=== PATIENT | female | born 1970 | race Two or more races ===

== ENCOUNTER 2018-06-11 12:41 | Emergency (ER) | END 2018-06-11 14:44 | disposition home or self-care (01) ==

== ENCOUNTER 2019-01-05 21:30 | Emergency (ER) | payer OTHER ==
[~2019-01-05] VITALS: Ht 157.5 cm; Wt 82.9 kg
[~2019-01-05 21:30] MED LIST: CEPH-443 PO; IBUP-1542 PO; NAPR-985 PO; VAL2 PO
[2019-01-05 21:39] VITALS: Ht 157.5 cm; Wt 82.9 kg
[2019-01-06] MEDS ORDERED: ACETAMINOPHEN 325 MG TAB PO ONE (02:00)
[2019-01-06] MEDS ORDERED: CHOL100062 PO (03:17)
[2019-01-06] MEDS ORDERED: LORA-441 PO (04:21)
[2019-01-06 04:50] VITALS: BP 137/75; PULSE 70; RESP 20
--- NOTE | 2019-01-31 21:17 | ERD ---
ER Documentation Chief Complaint Chief Complaint c/o non radiating cpx2 mo. worse tonight. denies sob. HPI Is a 49) comes with tolerating chest pain for 2 months which is worsening. Pain is mild to moderate intensity no exacerbating living factors. Denies fevers chills nausea vomiting. Denies shortness of breath. Denies palpitations. Denies any other current issues. ROS All systems reviewed and are negative except as per history of present illness. Medications Home Meds Active Scripts Lorazepam* (Ativan*) 0.5 Mg Tablet, 0.5 MG PO Q8H PRN for ANXIETY, #10 TAB Prov:ROLANDA CROCKER 01/06/19 Naproxen* (Naprosyn*) 500 Mg Tablet, 500 MG PO BID PRN for PAIN AND/OR INFLAMMATION, #30 TAB Prov:ROLANDA MULLER PA-C 09/03/18 Ibuprofen* (Motrin*) 600 Mg Tab, 600 MG PO Q6, #30 TAB Prov:ERIC HUFFMAN 06/11/18 Reported Medications Cholecalciferol* (Vitamin D3*) 1,000 Unit Tablet, 1000 UNIT PO DAILY, TAB 01/06/19 Allergies Allergies: Coded Allergies: No Known Allergy (Unverified , 01/05/19) PMhx/Soc History of Surgery: No Anesthesia Reaction: No Hx Neurological Disorder: No Hx Respiratory Disorders: No Hx Cardiac Disorders: Yes (HTN) Hx Psychiatric Problems: No Hx Miscellaneous Medical Probl: No Hx Alcohol Use: Yes (social) Hx Substance Use: No Hx Tobacco Use: No Smoking Status: Never smoker Physical Exam Physical Exam Const: No acute distress Head: Atraumatic Eyes: Normal Conjunctiva ENT: Normal External Ears, Nose and Mouth. Neck: Full range of motion. No meningismus. Resp: Clear to auscultation bilaterally Cardio: Regular rate and rhythm, no murmurs Abd: Soft, non tender, non distended. Normal bowel sounds Skin: No petechiae or rashes Back: No midline or flank tenderness Ext: No cyanosis, or edema Neur: Awake and alert Psych: Normal Mood and Affect Results 24 hrs Laboratory Tests Test 01/06/19 01:32 White Blood Count 8.0 10^3/ul Red Blood Count 4.49 10^6/ul Hemoglobin 13.6 g/dl Hematocrit 41.5 % Mean Corpuscular Volume 92.4 fl Mean Corpuscular Hemoglobin 30.3 pg Mean Corpuscular Hemoglobin Concent 32.8 g/dl Red Cell Distribution Width 12.6 % Platelet Count 228 10^3/UL Mean Platelet Volume 9.2 fl Immature Granulocytes % 0.400 % Neutrophils % 48.0 % Lymphocytes % 39.2 % Monocytes % 9.9 % Eosinophils % 2.1 % Basophils % 0.4 % Nucleated Red Blood Cells % 0.0 /100WBC Immature Granulocytes # 0.030 10^3/ul Neutrophils # 3.9 10^3/ul Lymphocytes # 3.1 10^3/ul Monocytes # 0.8 10^3/ul Eosinophils # 0.2 10^3/ul Basophils # 0.0 10^3/ul Nucleated Red Blood Cells # 0.0 10^3/ul Sodium Level 140 mmol/L Potassium Level 3.7 mmol/L Chloride Level 102 mmol/L Carbon Dioxide Level 26 mmol/L Anion Gap 12 Blood Urea Nitrogen 17 mg/dl Creatinine 0.63 mg/dl Est Glomerular Filtrat Rate mL/min > 60 mL/min Glucose Level 109 mg/dl Calcium Level 9.3 mg/dl Total Bilirubin 0.2 mg/dl Direct Bilirubin 0.00 mg/dl Indirect Bilirubin 0.2 mg/dl Aspartate Amino Transf (AST/SGOT) 30 IU/L Alanine Aminotransferase (ALT/SGPT) 35 IU/L Alkaline Phosphatase 73 IU/L Troponin I < 0.012 ng/ml B-Type Natriuretic Peptide 26 PG/ML Total Protein 8.5 g/dl Albumin 4.7 g/dl Globulin 3.80 g/dl Albumin/Globulin Ratio 1.23 Lipase 298 U/L Current Medications Medications Dose Sig/Venecia Start Time Status Last (Trade) Ordered Route PRN Stop Time Admin Dose Reason Admin 650 mg ONCE ONCE 01/06/19 DC 01/06/19 Acetaminophen PO 02:00 02:15 (Tylenol 01/06/19 02:01 Tab) Procedures/MDM EKG: Rate/Rhythm: [Normal Sinus Rhythm] QRS, ST, T-waves: [No changes consistent w/ acute ischemia] Impression: [No evidence of ischemia or arrhythmia] Chest X-ray 1V Interpreted by me: Soft Tissue: No acute abnormalities Bones: No acute abnormalities Mediastinum/Cardiac Silhouette/Lungs: [No acute abnormalities] Medical decision making: Patient's thoracic symptoms have stabilized while in the department and are stable for outpatient follow up. Exam and work up not consistent w/ ischemia, arrhythmia, PE or dissection. Departure Diagnosis: Primary Impression: Chest pain Chest pain type: unspecified Qualified Codes: R07.9 - Chest pain, unspecified Condition: Stable Patient Instructions: Anxiety Reaction, Chest Pain, Uncertain Cause ROLANDA CROCKER January 31, 2019 21:17
== END 2019-01-06 04:53 | disposition home or self-care (01) ==
LOC: E/R 21:30
DX: R04.0 Epistaxis (principal)
CPT/HCPCS: 71045; 80053; 83690; 83880; 84484; 85025; 93005; Z7610; 99282